=== PATIENT | male | born 1965 | race Caucasian/White ===

== ENCOUNTER 2020-12-02 04:34 | Inpatient (IN) | payer MEDICARE, OTHER ==
[~2020-12-02] VITALS: Ht 188 cm; Wt 99.8 kg
[~2020-12-02 04:34] MED LIST: GABAPENTIN800 MG PO; NORCO 10-325 T1 EACH PO
[2020-12-02 05:18] LABS: RED BLOOD COUNT 4.29 M/UL (4.20-5.50); WHITE BLOOD COUNT 6.8 K/UL (4.5-11.0)
[2020-12-02 05:54] LABS: BUN/CREATININE RATIO 23 (0-10)
[2020-12-02] MEDS ORDERED: BUMETANIDE1 MG PO (10:21)
[2020-12-02] MEDS ORDERED: ASPIRIN81 MG PO (10:21)
[2020-12-02] MEDS ORDERED: POTASSIUM CHLO20 ME2 PO (10:22)
[2020-12-02] MEDS ORDERED: PROAIR HFA8.5 GM INH (10:23)
[2020-12-02] MEDS ORDERED: ATORVASTATIN CA80 MG PO (10:23)
[2020-12-02] MEDS ORDERED: DIGOXIN125 MCG PO (10:24)
[2020-12-02] MEDS ORDERED: PLAVIX 75 MG TA75 MG PO (10:24)
[2020-12-02] MEDS ORDERED: SYMBICORT 80-10.2 GM INH (10:24)
[2020-12-02] MEDS ORDERED: NITROGLYCERIN0.4 MG SL (10:25)
[2020-12-02] MEDS ORDERED: METOPROLOL TART25 MG PO (10:25)
[2020-12-02] MEDS ORDERED: ENTRESTO 24 MG1 EACH PO (10:26)
[2020-12-02] MEDS ORDERED: HYDROCODON-ACE1 EAC6 PO (10:27)
[2020-12-03 07:07] LABS: HEMOGLOBIN 13.7 gm/dl (14.0-17.5); RED BLOOD COUNT 4.42 M/UL (4.20-5.50); WHITE BLOOD COUNT 7.4 K/UL (4.5-11.0)
[2020-12-03 08:00] LABS: BUN/CREATININE RATIO 22 (0-10)
[2020-12-04 06:04] LABS: HEMOGLOBIN 13.8 gm/dl (14.0-17.5); RED BLOOD COUNT 4.53 M/UL (4.20-5.50); WHITE BLOOD COUNT 7.8 K/UL (4.5-11.0)
[2020-12-04 06:30] LABS: BUN/CREATININE RATIO 22 (0-10)
[2020-12-04 09:14] LABS: HBSAG SCREEN Negative (Negative); HEP B CORE AB, TOT Negative (Negative); HEP C VIRUS AB 0.2 (0.0-0.9)
[2020-12-04 13:51] LABS: BODY FLUID SOURCE PERITONEAL
[2020-12-04 13:54] LABS: MONONUCLEAR CELLS 83 (75-100); POLYMORPHONUCLEAR % 17 (0-25); RBC (AUTOMATED) 3200 (0-100000); WBC (AUTOMATED) 356 (0-500)
[2020-12-04 14:07] LABS: LDH, BODY FLUID 90 U/L; TOTAL PROTEIN, BODY FLUID 4.1 gm/dL
--- NOTE | 2020-12-04 16:52 | NUR ---
patient rang out director sanitation bureau light after paracentesis because site was leaking fluid. i delegated to the tech to take a gauze and tape and reinforce the dressing. the tech completed the task. the tech alerted me while i was in another patient room to check on the patient so i left my current patient room to check on this patient. he was at the nurses station angry wanting to sign himself out because his paracentesis site had saturated the gauze the tech placed. the patient came to the nurses station banging on the desk at another nurse. Dr otto told me to just let him go [facility] as she is not discharging him. patient left [facility] with his brother and he understands all risks associated with leaving [facility].
== END 2020-12-04 16:41 | disposition left against medical advice (07) | DRG 291 ==
LOC: ER1 04:34 → CDU 08:37 → MED SURG 4 08:37
PROVIDERS: Physician Assistant; ADMIT Internal Medicine
PROC: B24BZZ4 Ultrasonography of Heart with Aorta, Transesophageal (ICD-10-PCS; principal; 2020-12-02)
PROC: 0W9G3ZZ Drainage of Peritoneal Cavity, Percutaneous Approach (ICD-10-PCS; 2020-12-04)
PROC: BW40ZZZ Ultrasonography of Abdomen (ICD-10-PCS; 2020-12-04)
DX: I11.0 Hypertensive heart disease with heart failure (principal); I50.23 Acute on chronic systolic (congestive) heart failure; J96.01 Acute respiratory failure with hypoxia; R18.8 Other ascites; I25.5 Ischemic cardiomyopathy; Z20.822 Contact with and (suspected) exposure to COVID-19; J44.9 Chronic obstructive pulmonary disease, unspecified; I34.0 Nonrheumatic mitral (valve) insufficiency; K59.09 Other constipation; F17.210 Nicotine dependence, cigarettes, uncomplicated; G89.29 Other chronic pain; K74.60 Unspecified cirrhosis of liver; K46.9 Unspecified abdominal hernia without obstruction or gangrene; I25.10 Atherosclerotic heart disease of native coronary artery without angina pectoris; Z91.14 Patient's other noncompliance with medication regimen; Z99.81 Dependence on supplemental oxygen; Z95.1 Presence of aortocoronary bypass graft; Z80.1 Family history of malignant neoplasm of trachea, bronchus and lung; Z82.49 Family history of ischemic heart disease and other diseases of the circulatory system; Z79.82 Long term (current) use of aspirin
CPT/HCPCS: ECHO; 36415; 36600; 71045; 80053; 80162; 82550; 82553; 82803; 83615; 83874; 83880; 84157; 84484; 85025; 85379; 85610; 85730; 86704; 86706; 86708; 86803; 87040; 87070; 87077; 87186; 87205; 87340; 89051; 93005; 93306; 94640; 94664; 94760; 96374; 99285; J0696; J1205; J1650; J1940; Q9967; U0002